=== PATIENT | female | born 1950 | race Two or more races ===

== ENCOUNTER 2017-02-02 17:17 | Observation (INO) | payer MEDICARE ==
[2017-02-02 17:30] VITALS: BMI 29.0
--- NOTE | 2017-02-02 17:56 | PDOC ---
History of Present Illness - General Chief Complaint: Chest Pain Stated Complaint: PCP SENT/CHEST PAIN Time Seen by Provider: 02/02/17 17:56 - History of Present Illness Initial Comments: 02/02/17 18:15 Ms. York is a 66 year old female with a significant past medical history of HTN, HLD, who presents to the emergency department from PCP reporting possible chest pain on thursday. The patient's blood pressure was 199 systolic at her PCPs. Says she has some current mild dizziness. The patient denies current chest pain, shortness of breath, and headache. Denies fever, chills, nausea, vomit, diarrhea and constipation. Denies dysuria, frequency, urgency and hematuria. Allergies: NKDA Referred by Leonard Irene (ENT) Past History - Past Medical History Allergies/Adverse Reactions: Allergies Allergy/AdvReac Type Severity Reaction Status Date / Time No Known Allergies Allergy Verified 02/02/17 17:26 Home Medications: Ambulatory Orders Aspirin [ASA -] 81 mg PO DAILY 09/13/16 Losartan Potassium 50 mg PO DAILY 09/13/16 Simvastatin 40 mg PO DAILY 09/13/16 HTN: Yes - Immunization History Immunization Up to Date: Yes - Suicide/Smoking/Psychosocial Hx Smoking History: Never smoked Hx Alcohol Use: No Drug/Substance Use Hx: No Substance Use Type: None Review of Systems - Review of Systems Comments:: 02/02/17 18:15 GENERAL/CONSTITUTIONAL: No fever or chills. No weakness. HEAD, EYES, EARS, NOSE AND THROAT: No change in vision. No ear pain or discharge. No sore throat. CARDIOVASCULAR: +Chest pain 2 days ago. No shortness of breath RESPIRATORY: No cough, wheezing, or hemoptysis. GASTROINTESTINAL: No nausea, vomiting, diarrhea or constipation. GENITOURINARY: No dysuria, frequency, or change in urination. MUSCULOSKELETAL: No joint or muscle swelling or pain. No neck or back pain. SKIN: No rash NEUROLOGIC: +Some current dizziness reported. No headache, vertigo, loss of consciousness, or change in strength/sensation. ENDOCRINE: No increased thirst. No abnormal weight change HEMATOLOGIC/LYMPHATIC: No anemia, easy bleeding, or history of blood clots. ALLERGIC/IMMUNOLOGIC: No hives or skin allergy. *Physical Exam - Vital Signs Last Vital Signs Temp Pulse Resp BP Pulse Ox 98.3 F 80 20 167/89 100 02/02/17 17:26 02/02/17 17:26 02/02/17 17:26 02/02/17 17:26 02/02/17 17:26 - Physical Exam Comments: 02/02/17 18:15 GENERAL: Awake, alert, and fully oriented, in no acute distress HEAD: No signs of trauma, normocephalic, atraumatic EYES: PERRLA, EOMI, sclera anicteric, conjunctiva clear ENT: Auricles normal inspection, hearing grossly normal, nares patent, oropharynx clear without exudates. Moist mucosa NECK: Normal ROM, supple, no lymphadenopathy, JVD, or masses LUNGS: No distress, speaks full sentences, clear to auscultation bilaterally HEART: Regular rate and rhythm, normal S1 and S2, no murmurs, rubs or gallops, peripheral pulses normal and equal bilaterally. ABDOMEN: Soft, nontender, normoactive bowel sounds. No guarding, no rebound. No masses EXTREMITIES: Normal inspection, Normal range of motion, no edema. No clubbing or cyanosis. NEUROLOGICAL: Cranial nerves II through XII grossly intact. Normal speech, normal gait, no focal sensorimotor deficits SKIN: Warm, Dry, normal turgor, no rashes or lesions noted. ED Treatment Course - LABORATORY CBC & Chemistry Diagram: 02/02/17 18:25 02/02/17 18:25 Medical Decision Making - Medical Decision Making 02/02/17 18:19 Patient presents for evaluation of previous chest pain with dizziness and systolic BP of 199. Labetalol given and EKG/trop/CBC/CMP sent. 02/02/17 18:57 Patient signed off to Dr. Ruiz for further care. *DC/Admit/Observation/Transfer Diagnosis at time of Disposition: Hypertension Qualifiers: Hypertension type: unspecified Qualified Code(s): I10 - Essential (primary) hypertension
--- NOTE | 2017-02-02 17:59 | PDOC ---
Attending Attestation - Resident Resident Name: Dario Vargas - ED Attending Attestation I have performed the following: I have examined & evaluated the patient, The case was reviewed & discussed with the resident, I agree w/resident's findings & plan, Exceptions are as noted - HPI HPI: 02/02/17 17:57 Chest Pain - Thursday, Sent from ENT office Today(thursday) because of elevated BP - Physicial Exam PE: 02/02/17 17:58 VSS NAD PAIN FREE AT PRESENT - Medical Decision Making 02/02/17 17:[address] Vargas's assessment and plan
[2017-02-02] MEDS ORDERED: LABETALOL HCL 5 MG/1 ML (100MG/20 ML VIAL) IVPUSH ONE ×3 (18:13→22:46)
[2017-02-02] MEDS ORDERED: LABETALOL HCL 5 MG/1 ML (200MG/40ML VIAL) IVPB ONE (18:37)
[2017-02-02 19:04] LABS: BASOPHIL 1.5 % (0-2.0); EOSINOPHIL 1.1 % (0-4.5); MCH 29.6 pg (25.7-33.7); MCHC 32.9 g/dl (32.0-36.0); MEAN PLT VOLUME 9.9 fl (7.5-11.1); NEUTROPHILS 58.4 % (42.8-82.8); PLATELET COUNT 283 K/MM3 (134-434); RDW 14.4 % (11.6-15.6); WHITE BLOOD COUNT 8.3 K/mm3 (4.0-10.0)
[2017-02-02 19:21] LABS: ALBUMIN 3.6 g/dl (3.4-5.0); ANION GAP 5 (8-16); CALCIUM 8.9 mg/dL (8.5-10.1); CO2 30 mmol/L (21-32); GLUCOSE,RANDOM 85 mg/dL (74-106); SGOT/AST 19 U/L (15-37); SGPT/ALT 22 U/L (12-78)
[2017-02-02 19:25] LABS: ALK PHOS 105 U/L (45-117); BILIRUBIN,TOTAL 0.3 mg/dL (0.2-1.0); CPK 265 IU/L (26-192); TOT PROT 7.5 g/dl (6.4-8.2); TROPONIN I < 0.02 ng/ml (0.00-0.05)
[2017-02-02] MEDS ORDERED: LOSARTAN POTASSIUM 50 MG TABLET (FP) PO ONE (19:43)
--- NOTE | 2017-02-02 19:46 | PDOC ---
History of Present Illness - General Chief Complaint: Chest Pain Stated Complaint: PCP SENT/CHEST PAIN Time Seen by Provider: 02/02/17 17:56 Past History - Past Medical History Allergies/Adverse Reactions: Allergies Allergy/AdvReac Type Severity Reaction Status Date / Time No Known Allergies Allergy Verified 02/02/17 17:26 Home Medications: Ambulatory Orders Aspirin [ASA -] 81 mg PO DAILY 09/13/16 Losartan Potassium 50 mg PO DAILY 09/13/16 Simvastatin 40 mg PO DAILY 09/13/16 HTN: Yes - Immunization History Immunization Up to Date: Yes - Suicide/Smoking/Psychosocial Hx Smoking History: Never smoked Hx Alcohol Use: No Drug/Substance Use Hx: No Substance Use Type: None *Physical Exam - Vital Signs Last Vital Signs Temp Pulse Resp BP Pulse Ox 98.0 F 80 18 184/78 98 02/02/17 18:07 02/02/17 18:07 02/02/17 18:07 02/02/17 18:40 02/02/17 18:07 ED Treatment Course - LABORATORY CBC & Chemistry Diagram: 02/02/17 18:25 02/02/17 18:25 - ADDITIONAL ORDERS Additional order review: 02/02/17 18:25 RBC 4.03 MCV 90.0 MCHC 32.9 RDW 14.4 MPV 9.9 D Neutrophils % 58.4 Lymphocytes % 29.4 Monocytes % 9.6 Eosinophils % 1.1 Basophils % 1.5 - Medications Given in the ED: ED Medications Discontinued Medications Generic Name Dose Route Start Last Admin Trade Name Freq PRN Reason Stop Dose Admin Labetalol HCl 5 mg 02/02/17 18:13 02/02/17 18:46 Normodyne Injection - IVPUSH 02/02/17 18:14 5 mg ONCE ONE Administration Medical Decision Making - Medical Decision Making 02/02/17 19:44 Additional patient history obtained, patient takes Losartan Potassium (50 mg BID ). Patient took her morning dose but not her afternoon dose which she usually takes around 3-4 p.m. daily. Patient administered second dose *DC/Admit/Observation/Transfer Diagnosis at time of Disposition: Hypertension Qualifiers: Hypertension type: unspecified Qualified Code(s): I10 - Essential (primary) hypertension - Referrals Referrals: Keith rGeene MD [Primary Care Provider] - - Patient Instructions - Post Discharge Activity
[2017-02-02] MEDS ORDERED: LOSARTAN POTASSIUM 25 MG TABLET ONE (20:07)
--- NOTE | 2017-02-02 22:31 | PDOC ---
*Physical Exam - Vital Signs Last Vital Signs Temp Pulse Resp BP Pulse Ox 98.0 F 72 18 174/73 98 02/02/17 18:07 02/02/17 20:13 02/02/17 20:13 02/02/17 20:13 02/02/17 20:13 - Physical Exam General Appearance: Yes: Nourished, Appropriately Dressed HEENT: positive: EOMI, NELLY Neck: positive: Trachea midline, Supple Respiratory/Chest: positive: Lungs Clear, Normal Breath Sounds Cardiovascular: positive: Regular Rhythm, Regular Rate, S1, S2 Neurologic: positive: Fully Oriented, Alert ED Treatment Course - LABORATORY CBC & Chemistry Diagram: 02/02/17 18:25 02/02/17 18:25 - ADDITIONAL ORDERS Additional order review: Laboratory Results 02/02/17 18:25 Sodium 140 Potassium 3.6 Chloride 105 Carbon Dioxide 30 Anion Gap 5 L BUN 15 Creatinine 1.0 Creat Clearance w eGFR 55.64 Random Glucose 85 Calcium 8.9 Total Bilirubin 0.3 AST 19 ALT 22 Alkaline Phosphatase 105 Creatine Kinase 265 H Creatine Kinase Index 0.6 CK-MB (CK-2) 1.835 Troponin I < 0.02 Total Protein 7.5 Albumin 3.6 02/02/17 18:25 RBC 4.03 MCV 90.0 MCHC 32.9 RDW 14.4 MPV 9.9 D Neutrophils % 58.4 Lymphocytes % 29.4 Monocytes % 9.6 Eosinophils % 1.1 Basophils % 1.5 - Medications Given in the ED: ED Medications Discontinued Medications Generic Name Dose Route Start Last Admin Trade Name Freq PRN Reason Stop Dose Admin Labetalol HCl 5 mg 02/02/17 18:13 02/02/17 18:46 Normodyne Injection - IVPUSH 02/02/17 18:14 5 mg ONCE ONE Administration Losartan Potassium 50 mg 02/02/17 19:43 02/02/17 20:12 Cozaar - PO 02/02/17 19:44 50 mg ONCE ONE Administration Medical Decision Making - Medical Decision Making 02/02/17 22:30 Patient continued to have elevated BP (190's SBP) following administration of Labetalol (5 mg) as well as her second dose of her home medication (Losartan Potassium (50 mg BID). Pressure taken on alternate arms as well as manual pressure to confirm SBP 190's. Patient admitted to telemetry/observation under Dr. Ashford with cardiology consult to Dr. Delcid. *DC/Admit/Observation/Transfer Diagnosis at time of Disposition: Hypertension Qualifiers: Hypertension type: unspecified Qualified Code(s): I10 - Essential (primary) hypertension - Discharge Dispostion Admit: Yes - Referrals Referrals: Keith Greene MD [Primary Care Provider] - - Patient Instructions - Post Discharge Activity
[2017-02-03 07:35] LABS: MCH 29.6 pg (25.7-33.7); MEAN CELL VOLUME 89.7 fl (80-96); MEAN PLT VOLUME 9.3 fl (7.5-11.1); PLATELET COUNT 267 K/MM3 (134-434); RDW 14.5 % (11.6-15.6); WHITE BLOOD COUNT 8.6 K/mm3 (4.0-10.0)
[2017-02-03 09:06] LABS: ALBUMIN 3.7 g/dl (3.4-5.0); ANION GAP 8 (8-16); CALCIUM 8.8 mg/dL (8.5-10.1); CO2 29 mmol/L (21-32); GLUCOSE,RANDOM 82 mg/dL (74-106)
[2017-02-03 09:13] LABS: ALK PHOS 95 U/L (45-117); BILIRUBIN,TOTAL 0.5 mg/dL (0.2-1.0); CPK 219 IU/L (26-192); CREATININE 0.8 mg/dL (0.55-1.02); SGOT/AST 17 U/L (15-37); SGPT/ALT 22 U/L (12-78); TOT PROT 7.1 g/dl (6.4-8.2); TROPONIN I < 0.02 ng/ml (0.00-0.05)
[2017-02-03] MEDS ORDERED: PT OWN MED DRAWER 7, Y5N ONE (09:23)
[2017-02-03] MEDS: ASPIRIN COATED 81 MG TABLET.EC PO SCH (09:37)
[2017-02-03] MEDS: ATORVASTATIN CA 20 MG TABLET (FP) PO SCH (09:37)
[2017-02-03] MEDS ORDERED: LOSARTAN POTASSIUM 50 MG TABLET (FP) PO SCH ×2 (10:00→12:26)
[2017-02-03] MEDS ORDERED: LOSARTAN POTASSIUM 50 MG TABLET (FP) PO ONE (12:25)
[2017-02-03] MEDS: METOPROLOL TARTRATE 50 MG TABLET (FP) PO SCH ×2 (13:23→21:40)
[2017-02-03] MEDS: HYDROCHLOROTHIAZIDE 25 MG TABLET (FP) PO SCH (13:23)
--- NOTE | 2017-02-03 13:23 | EKG ---
Test Reason : Blood Pressure : / mmHG Vent. Rate : 079 BPM Atrial Rate : 079 BPM P-R Int : 186 ms QRS Dur : 090 ms QT Int : 378 ms P-R-T Axes : 062 048 094 degrees QTc Int : 433 ms NORMAL SINUS RHYTHM NONSPECIFIC T WAVE ABNORMALITY ABNORMAL ECG WHEN COMPARED WITH ECG OF 16-AUG-2005 01:25, T WAVES ARE INVERTED IN LEADS aVL,V4-V6 CLINICAL CORRELATION IS RECOMMENDED REPEAT EKG INDICATED Confirmed by GINA SHAIKH MD ([id number] on 02/03/2017 1:23:08 PM Referred By: Confirmed By:GINA SHAIKH MD
--- NOTE | 2017-02-03 15:30 | PN ---
Progress Note (short form) - Note Progress Note: Chief Complaint: Events noted, notes reviewed, denies any further chest pain denies any dyspnea History of Present Illness: Seen and examined. Full consult dictated Echocardiography pending - Current Medication List Current Medications Aspirin (Ecotrin -) 81 mg PO DAILY [facility] Last Admin: 02/03/17 09:37 Dose: 81 mg Atorvastatin Calcium (Lipitor -) 20 mg PO DAILY [facility] Last Admin: 02/03/17 09:37 Dose: 20 mg Losartan Potassium (Cozaar -) 50 mg PO DAILY [facility] Review of Systems - Review of Systems Constitutional: No symptoms reported Respiratory: denies: Cough or Sputum Production Cardiovascular: as noted above Gastrointestinal: denies Nausea, Vomiting, Diarrhea, Constipation or Abdominal Pain Genitourinary: No symptoms reported Musculoskeletal: No symptoms reported Endocrine: No symptoms reported - Objective Vital Signs: Last Vital Signs Temp Pulse Resp BP Pulse Ox 98.2 F 75 20 159/73 98 02/03/17 14:00 02/03/17 14:00 02/03/17 10:00 02/03/17 14:00 02/03/17 10:00 Intake & Output 01/31/17 02/01/17 02/02/17 02/03/17 23:59 23:59 23:59 23:59 Intake Total 400 Balance 400 Weight 186 lb Constitutional: No Distress, Calm Neck: Supple Negative JVD Cardiovascular: S1 S2 Regular Rate and Rhythm, Grade 2/6 Systolic Ejection Murmur Respiratory: Clear to A&P Gastrointestinal: Soft, Benign Normal Bowel Sounds Ext: No Edema Labs: CBC, BMP 02/03/17 05:28 02/03/17 05:28 Hepatic Panel Total Bilirubin 0.5 mg/dL (0.2-1.0) D 02/03/17 05:28 AST 17 U/L (15-37) 02/03/17 05:28 ALT 22 U/L (12-78) 02/03/17 05:28 Alkaline Phosphatase 95 U/L (45-117) 02/03/17 05:28 Albumin 3.7 g/dl (3.4-5.0) 02/03/17 05:28 Troponin, BNP 02/02/17 02/03/17 18:25 05:28 Troponin I < 0.02 < 0.02 Assessment/Plan ASSESSMENT: 1. Chest pain syndrome clinical presentation of which is atypical for coronary artery disease angina pectoris, but to be excluded considering an abnormal electrocardiogram 2. Probable diastolic left ventricular dysfunction with class 0 [place] [employer] classification left ventricular failure 3. Hypertensive cardiovascular disease, labile blood pressure not at goal 4. Hypercholesterolemia 5. Heart Murmur most likely related to aortic valve disease aortic valve sclerosis, unlikely aortic valve stenosis PLAN: 1. Addition of beta jhon therapy in form of Lopressor 50 mg twice a day 2. Increasing dose of Cozaar to 100 mg once a day 3. Addition of Hydrochlorothiazide therapy at 25 mg once a day 4. Continuation of Ecotrin therapy 5. Continuation of Lipitor therapy 6. Echocardiography for evaluation of LV size and function and the above noted heart murmur 7. Recommend outpatient myocardial perfusion imaging study for further evaluation of the above-noted clinical presentation Navid Cline M.D.
--- NOTE | 2017-02-03 16:22 | HP ---
Admitting History and Physical - Primary Care Physician PCP: Elsa Ashford - Admission Chief Complaint: chest pain on thursday? History of Present Illness: -66 year old female with a significant past medical history of HTN, HLD, who presents to the emergency department from PCP reporting possible chest pain on thursday. The patient's blood pressure was 199 systolic at her PCPs. Says she has some current mild dizziness. currently no chest pain - Past Medical History Cardiovascular: Yes: HTN, Hyperlipdemia - Smoking History Smoking history: Never smoked - Alcohol/Substance Use Hx Alcohol Use: No Home Medications - Allergies Allergies/Adverse Reactions: Allergies Allergy/AdvReac Type Severity Reaction Status Date / Time No Known Allergies Allergy Verified 02/02/17 17:26 - Home Medications Home Medications: Ambulatory Orders Aspirin [ASA -] 81 mg PO DAILY 09/13/16 Losartan Potassium 50 mg PO DAILY 09/13/16 Simvastatin 40 mg PO DAILY 09/13/16 Physical Examination Vital Signs: Vital Signs Temperature 98.2 F 02/03/17 14:00 Pulse Rate 75 02/03/17 14:00 Respiratory Rate 20 02/03/17 10:00 Blood Pressure 159/73 02/03/17 14:00 O2 Sat by Pulse Oximetry (%) 98 02/03/17 10:00 Constitutional: Yes: No Distress HENT: Yes: Atraumatic Neck: Yes: Supple Cardiovascular: Yes: Regular Rate and Rhythm Respiratory: Yes: CTA Bilaterally Gastrointestinal: Yes: Normal Bowel Sounds Extremities: Yes: WNL Edema: No Peripheral Pulses WNL: Yes Neurological: Yes: Alert, Oriented Labs: CBC, BMP 02/03/17 05:28 02/03/17 05:28 Problem List - Problems (1) Hypertension Assessment/Plan: pts bp unstable on meds cardiology on board Code(s): I10 - ESSENTIAL (PRIMARY) HYPERTENSION Qualifiers: Hypertension type: unspecified Qualified Code(s): I10 - Essential ( primary) hypertension
--- NOTE | 2017-02-03 17:07 | CONS ---
DATE OF CONSULTATION: 02/03/2017 REQUESTING PHYSICIAN: Elsa Ashford MD CHIEF COMPLAINT: Chest pain, uncontrolled blood pressure. HISTORY OF PRESENT ILLNESS: A 66-year-old female of descent with known history of hypertensive cardiovascular disease, hypercholesterolemia, who denied diabetes mellitus, tobacco abuse, family history of premature coronary artery disease, who presented to [facility] for evaluation of recent-onset chest discomfort and uncontrolled blood pressure. Chest discomfort was noted a few days ago, which was described as heaviness, which was transitory, and it subsided spontaneously within a few minutes. The patient denied any exacerbation with physical exertion. Patient denied any associated symptomatology, i.e. diaphoresis. Patient was noted to have elevated blood pressure. In view of which, she was advised hospitalization for further evaluation and management. The patient currently denies any chest discomfort or dyspnea. Patient does not report any history of orthopnea, paroxysmal nocturnal dyspnea, or peripheral edema. Patient denies any palpitations, dizziness, lightheadedness, or syncope. Patient denies any fatigue or tiredness. PAST MEDICAL HISTORY: Hypertensive cardiovascular disease and hypercholesterolemia. SOCIAL HISTORY: Nonsmoker. FAMILY HISTORY: Positive coronary artery disease. ALLERGIES: None reported. MEDICAL THERAPY AT HOME: Included aspirin 81 mg once a day, Lipitor 20 mg once a day, Cozaar 50 mg once a day. REVIEW OF SYSTEMS: Head and Neck: Denies headache, photophobia, blurring of vision. Respiratory: No cough or sputum production. Cardiovascular: As noted above. Gastrointestinal: Denies nausea, vomiting, diarrhea, abdominal discomfort. Genitourinary: No symptoms reported. Musculoskeletal: No symptoms reported. PHYSICAL EXAMINATION: Vital Signs: Blood pressure is 159/73 mmHg. Pulse rate is 75 beats per minute. Head and Neck: Pupils equal and reactive to light and accommodation. Extraocular muscles are intact. Anicteric sclerae. Negative JVD. No bruit appreciated. Chest: Clear to auscultation and percussion. Cardiovascular: S1, S2. Regular. Grade 2/6 systolic ejection murmur. No clicks or gallops. Abdomen: Soft, benign. Normoactive bowel sounds. Extremities: Negative edema. Intact distal pulses. No calf tenderness. DIAGNOSTIC DATA: Electrocardiogram revealed sinus rhythm with ST-segment and T-wave abnormality. CBC revealed white cell count 8.6, hemoglobin 12.0, platelet count 267. Basic metabolic profile revealed glucose 82, sodium 140, potassium 3.5, BUN of 12, creatinine 0.8. CPK and troponin-I levels were noted. ASSESSMENT: 1. Chest pain syndrome, clinical presentation of which is atypical for coronary artery disease, angina pectoris but to be excluded considering the above-noted abnormal electrocardiogram. 2. Probable diastolic left ventricular dysfunction with class 0 [place] [employer] classification left ventricular failure. 3. Hypertensive cardiovascular disease, labile blood pressure, not at goal. 4. Hypercholesterolemia. 5. Heart murmur, most likely related to aortic valve disease, aortic valve sclerosis; unlikely to be aortic valve stenosis. PLAN: 1. Additional beta-blockers in the form of Lopressor at 50 mg twice a day. 2. Increasing dose of Cozaar to 100 mg once a day. 3. Addition of hydrochlorothiazide therapy at 25 mg once a day. 4. Continuation of Ecotrin therapy. 5. Continuation of Lipitor therapy. 6. Echocardiography for evaluation of left ventricular size and function and the above-noted heart murmur. 7. Recommend outpatient myocardial perfusion imaging study for further evaluation of the above-noted clinical presentation. Thank you for the kind referral. NIR JASSO M.D. [id number]
[2017-02-03] MEDS ORDERED: ACETAMINOPHEN 325 MG TABLET (FP) PO PRN (19:12)
[2017-02-04] MEDS: HYDROCHLOROTHIAZIDE 25 MG TABLET (FP) PO SCH (10:22)
[2017-02-04] MEDS: METOPROLOL TARTRATE 50 MG TABLET (FP) PO SCH (10:22)
[2017-02-04] MEDS: ATORVASTATIN CA 20 MG TABLET (FP) PO SCH (10:22)
[2017-02-04] MEDS: ASPIRIN COATED 81 MG TABLET.EC PO SCH (10:22)
--- NOTE | 2017-02-04 11:36 | PN ---
Progress Note, Physician History of Present Illness: No further chest pain or dyspnea, no events or telemetry. - Current Medication List Current Medications: Active Medications Acetaminophen (Tylenol -) 650 mg PO Q6H PRN PRN Reason: FEVER OR PAIN Aspirin (Ecotrin -) 81 mg PO DAILY [facility] Last Admin: 02/04/17 10:22 Dose: 81 mg Atorvastatin Calcium (Lipitor -) 20 mg PO DAILY [facility] Last Admin: 02/04/17 10:22 Dose: 20 mg Hydrochlorothiazide (Hctz -) 25 mg PO DAILY [facility] Last Admin: 02/04/17 10:22 Dose: 25 mg Losartan Potassium (Cozaar -) 100 mg PO DAILY [facility] Metoprolol Tartrate (Lopressor -) 50 mg PO BID [facility] Last Admin: 02/04/17 10:22 Dose: 50 mg - Objective Vital Signs: Vital Signs Temperature 98.4 F 02/04/17 06:00 Pulse Rate 57 L 02/04/17 06:00 Respiratory Rate 20 02/04/17 06:00 Blood Pressure 126/60 02/04/17 06:00 O2 Sat by Pulse Oximetry (%) 96 02/03/17 21:00 Constitutional: Yes: No Distress, Calm Neck: Yes: Supple Cardiovascular: Yes: Regular Rate and Rhythm Respiratory: Yes: Regular, CTA Bilaterally Gastrointestinal: Yes: Normal Bowel Sounds, Soft Edema: No Problem List - Problems (1) Chest pain Code(s): R07.9 - CHEST PAIN, UNSPECIFIED Qualifiers: Chest pain type: other chest pain Qualified Code(s): R07.89 - Other chest pain; R07.8 - Other chest pain (2) Hypertensive cardiomyopathy Code(s): I11.9 - HYPERTENSIVE HEART DISEASE WITHOUT HEART FAILURE I43 - CARDIOMYOPATHY IN DISEASES CLASSIFIED ELSEWHERE Qualifiers: Heart failure presence: without heart failure Qualified Code(s): I11.9 - Hypertensive heart disease without heart failure; I43 - Cardiomyopathy in diseases classified elsewhere (3) Diastolic dysfunction without heart failure Code(s): I51.9 - HEART DISEASE, UNSPECIFIED (4) Hyperlipidemia Code(s): E78.5 - HYPERLIPIDEMIA, UNSPECIFIED Qualifiers: Hyperlipidemia type: pure hypercholesterolemia Qualified Code(s): E78.00 - Pure hypercholesterolemia, unspecified; E78.0 - Pure hypercholesterolemia Assessment/Plan 02/04/2017 Echo: Normal biventricular size and fxn, mod cLVH, mild MR 1. Chest pain syndrome clinical presentation of which is atypical for coronary artery disease angina pectoris, but to be excluded considering an abnormal electrocardiogram 2. Probable diastolic left ventricular dysfunction with class 0 [place] [employer] classification left ventricular failure 3. Hypertensive cardiovascular disease, blood pressure improved 4. Hypercholesterolemia PLAN: 1. Continue Lopressor 50 mg twice a day 2. Continue Hyzaar 100/25 once a day 3. Continuation of Ecotrin 81 qd 4. Continuation of Lipitor 20 qd 5. Recommend outpatient myocardial perfusion imaging study for further evaluation of the above-noted clinical presentation 6. [phone]
[2017-02-04 16:03] VITALS: BP 133/66; PULSE 60; TEMP 98.8
--- NOTE | 2017-02-04 17:25 | DS ---
Physical Examination Vital Signs: Vital Signs Temperature 98.8 F 02/04/17 14:00 Pulse Rate 60 02/04/17 14:00 Respiratory Rate 20 02/04/17 12:00 Blood Pressure 133/66 02/04/17 14:00 O2 Sat by Pulse Oximetry (%) 99 02/04/17 10:00 Constitutional: Yes: No Distress HENT: Yes: Atraumatic Neck: Yes: Supple Cardiovascular: Yes: Regular Rate and Rhythm Respiratory: Yes: CTA Bilaterally Gastrointestinal: Yes: Normal Bowel Sounds Extremities: Yes: WNL Edema: No Peripheral Pulses WNL: Yes Neurological: Yes: Alert, Oriented Discharge Summary Reason For Visit: ELEVATED BLOOD PRESSURE READING Current Active Problems Chest pain (Acute) Diastolic dysfunction without heart failure (Acute) Hyperlipidemia (Acute) Hypertension (Acute) Hypertensive cardiomyopathy (Acute) - Instructions Referrals: Keith Greene MD [Primary Care Provider] - - Home Medications Comprehensive Discharge Medication List: Ambulatory Orders Aspirin [ASA -] 81 mg PO DAILY 09/13/16 Simvastatin 40 mg PO DAILY 09/13/16 Hydrochlorothiazide [Hctz -] 25 mg PO DAILY #30 tablet 02/04/17 Losartan Potassium [Cozaar -] 100 mg PO DAILY #60 tablet 02/04/17 Metoprolol Tartrate [Lopressor -] 50 mg PO BID #30 tablet 02/04/17 [facility] for further testing as out pt
== END 2017-02-04 18:16 | disposition home or self-care (01) ==
LOC: JER 17:17 → JERBED 22:33 → UNDOADMOB 22:33 → INTOOBSV 23:35 → JERBED 23:35 → UNDOADMOB 23:35 → J4W 23:53 → JERBED 23:53 → J4W 23:53 → JERBED 02-03 18:43 → J4W 02-03 18:43 → INTOOBSV 02-03 18:43 → OBSVTOIN 02-03 18:43
PROVIDERS: ADMIT Internal Medicine; ATTEND Internal Medicine
PROC: 3E033GC Introduction of Other Therapeutic Substance into Peripheral Vein, Percutaneous Approach (ICD-10-PCS; principal; 2017-02-03)
DX: I11.9 Hypertensive heart disease without heart failure (principal); E78.5 Hyperlipidemia, unspecified; Z79.82 Long term (current) use of aspirin
CPT/HCPCS: 36415; 80053; 82553; 84484; 85025; 85027; 93005; 93010; 93306-TC; 99285-25; G0378

== ENCOUNTER 2018-06-09 12:53 | Inpatient (IN) | payer MEDICARE, OTHER | END 2018-06-14 17:52 | disposition home or self-care (01) | LOC: JER 12:53 → JERBED 14:48 → J6S 21:52 ==

== ENCOUNTER 2019-01-05 11:00 | Observation (INO) | payer MEDICARE, OTHER ==
[2019-01-05 11:59] LABS: BASO % 0.8 % (0-2.0); EOS % 0.7 % (0-4.5); HEMATOCRIT 38.8 % (32.4-45.2); HEMOGLOBIN 12.9 GM/dL (10.7-15.3); LYMPH % 39.9 % (8-40); MCHC 33.2 g/dl (32.0-36.0); MEAN CELL VOLUME 90.2 fl (80-96); MEAN PLT VOLUME 8.8 fl (7.5-11.1); MONO % 8.9 % (3.8-10.2); NEUT % 49.7 % (42.8-82.8); PLATELET COUNT 323 K/MM3 (134-434); RDW 14.6 % (11.6-15.6); WHITE BLOOD COUNT 7.6 K/mm3 (4.0-10.0)
[2019-01-05] MEDS ORDERED: SODIUM CHLORIDE 1,000 ML IV SCH (12:00)
--- NOTE | 2019-01-05 12:13 | EKG ---
Test Reason : Blood Pressure : / mmHG Vent. Rate : 092 BPM Atrial Rate : 092 BPM P-R Int : 176 ms QRS Dur : 088 ms QT Int : 408 ms P-R-T Axes : 068 050 083 degrees QTc Int : 504 ms SINUS RHYTHM WITH OCCASIONAL PREMATURE VENTRICULAR COMPLEXES POSSIBLE LEFT ATRIAL ENLARGEMENT NONSPECIFIC T WAVE ABNORMALITY ABNORMAL ECG WHEN COMPARED WITH ECG OF 09-JUN-2018 14:13, PREMATURE VENTRICULAR COMPLEXES ARE NOW PRESENT NONSPECIFIC T WAVE ABNORMALITY NO LONGER EVIDENT IN INFERIOR LEADS T WAVE INVERSION LESS EVIDENT IN ANTEROLATERAL LEADS QT HAS LENGTHENED Confirmed by KING MALLORY, MATHEW ([id number]) on 01/05/2019 12:13:30 PM Referred By: Confirmed By:MATHEW MALIK MD
[2019-01-05 12:23] LABS: BILIRUBIN,TOTAL 0.4 mg/dL (0.2-1); CALCIUM 9.5 mg/dL (8.5-10.1); CREATININE 0.9 mg/dL (0.55-1.3); TOT PROT 8.1 g/dl (6.4-8.2)
[2019-01-05] MEDS ORDERED: ASPIRIN 325 MG ENTERIC COATED TABLET (FP) PO ONE (12:23)
[2019-01-05] MEDS ORDERED: ASPIRIN 325 MG ENTERIC COATED TABLET (FP) ONE (12:44)
[2019-01-05 12:48] LABS: INR 1.1 (0.83-1.09)
[2019-01-05 13:13] LABS: CHOLESTEROL 244 mg/dL (50-200); HDL CHOLESTEROL 41 mg/dL (40-60); TRIGLYCERIDES 210 mg/dL (0-150)
--- NOTE | 2019-01-05 13:30 | PDOC ---
Documentation entered by Iveth Kumar SCRIBE, acting as scribe for Moody Bui MD. Moody Bui MD: This documentation has been prepared by the José henry Adrianna, SCRIBE, under my direction and personally reviewed by me in its entirety. I confirm that the documentation accurately reflects all work, treatment, procedures, and medical decision making performed by me. History of Present Illness - General Chief Complaint: Chest Pain Stated Complaint: CHEST PAIN Time Seen by Provider: 01/05/19 11:26 - History of Present Illness Initial Comments: 68 Y F, with PMH of HTN, HLD, sinusitis, and osteoporosis, presents for possible TIA. Patients last known well was at 10:40 am (~1 hour ago). Patient notes she was in the car coming back [place] her daughter at the train station, when she suddenly felt bad and as if she were losing her strength. 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 Patient notes she was able to picking table worker the bottle with her left hand. She reports chest palpitations, feeling dizzy, had a knot in her throat, and had difficulty speaking. Patients notes he was unable to understand what she was saying. Allergies: NKA, NKDA Surgical History: None reported Social History: Denies EtOH, tobacco, or illicit drug use PCP: Dr. Rayo Past History - Past Medical History Allergies/Adverse Reactions: Allergies Allergy/AdvReac Type Severity Reaction Status Date / Time No Known Allergies Allergy Verified 01/05/19 11:13 Home Medications: Ambulatory Orders Amlodipine Besylate 10 mg PO DAILY 06/09/18 Doxazosin Mesylate 4 mg PO DAILY 06/09/18 Labetalol HCl [Normodyne -] 200 mg PO BID 06/09/18 Olmesartan/Hydrochlorothiazide [Olmesartan-Hctz 40-25 mg Tab] 1 each PO DAILY Simvastatin 20 mg PO DAILY 06/10/18 COPD: No HTN: Yes Hypercholesterolemia: Yes - Immunization History Immunization Up to Date: Yes - Suicide/Smoking/Psychosocial Hx Smoking History: Unknown if ever smoked Have you smoked in the past 12 months: No Hx Alcohol Use: No Drug/Substance Use Hx: No Substance Use Type: None Review of Systems - Review of Systems Comments:: CONSTITUTIONAL: No fever, no chills, no fatigue EYES: No visual changes ENT: +Knot in throat. No ear pain CARDIOVASCULAR: +Chest palpitations. No chest pain RESPIRATORY: No cough, no SOB GI: No abdominal pain, no nausea, no vomiting, no constipation, no diarrhea GENITOURINARY: No dysuria, no frequency, no hematuria MUSKULOSKELETAL: No back pain, no joint pain, no myalgias SKIN: No rash NEURO: +Right hand and upper extremity weakness. +Difficulty speaking. + Illegible speech. +Dizzy *Physical Exam - Vital Signs Last Vital Signs Temp Pulse Resp BP Pulse Ox 97 F L 87 20 183/68 H 97 01/05/19 11:10 01/05/19 11:19 01/05/19 11:19 01/05/19 11:19 01/05/19 11:19 - Physical Exam Comments: 01/05/19 11:30 CONSTITUTIONAL: Well-appearing; well-nourished; in no apparent distress HEAD: Normocephalic; atraumatic EYES: PERRL; EOM intact ENMT: External appears normal; normal oropharynx NECK: Supple; non-tender; no cervical lymphadenopathy CARD: Normal S1, S2; no murmurs, rubs, or gallops RESP: Normal chest excursion with respiration; breath sounds clear and equal bilaterally; no wheezes, rhonchi, or rales ABD: Soft, non-distended; non-tender; no palpable organomegaly, no palpable hernias EXT: Normal ROM in all four extremities; non-tender to palpation; distal pulses intact SKIN: Warm, dry, no rash NEURO: +Right-sided facial droop. Alert, awake, appropriate. Cranial nerves 2- 12 intact. No deficits to light touch and temperature in face, upper extremities and lower extremities. No motor deficits in the upper extremities and lower extremities. No pronator drift. Normoreflexic in the upper and lower extremities. Normal speech. Toes are down-going bilaterally. Gait is normal without ataxia. No dysmetria. No dysdiadochokinesis. No skew deviation. No abnormal nystagmus. Rhomberg is +/-. Head thrust test is +/-. Dixs-Hallpike test is +/-. NIH Stroke Scale - Last Known Well Date/Time & Onset Date Last Known Well: 01/05/19 Time Last Known Well: 10:40 - Initial Evaluation Level of consciousness: Alert Ask patient the month and their age: Answers both correctly Ask patient to open & close eyes; make fist and let go: Obeys both correctly Best gaze (horizontal eye movement): Normal Visual field testing: No visual field loss Facial paresis (Show teeth/raise eyebrows/close eyes tight): Minor paralysis ( flattened nasolabial fold, asymmetry on smiling) Motor Function: Left Arm: Normal Motor Function: Right Arm: Normal (extends arm 90 (or 45) degrees for 10 seconds without drift Motor Function: Left Leg: Normal (extends leg 30 degrees for 5 seconds without drift) Motor Function: Right Leg: Normal (extends leg 30 degrees for 5 seconds without drift) Limb Ataxia: No ataxia Sensory(Use pinprick test arms,legs,trunk,face/side to side): Normal Best language (Describe picture, name items, read sentences): No Aphasia Dysarthria (read several words): Normal articulation Extinction and Inattention: No abnormality - Total Score NIH Stroke Scale Score: 1 tPA Exclusion Checklist 0-3hr - Time Elapsed Date last known well: 01/05/19 Time last known well: 10:40 Elaspsed time: Day(s) and 2 Hour(s) and 59 Minutes - Thrombolytic Therapy Candidate Is the patient eligible for Thrombolytic Therapy?: No - Exclusion Criteria 0-3hr SBP greater than 185 or DBP greater than 110mmHg despite tx: No Recent IC/spinal surgery,head trauma or stroke w/in last 3mo: No Hx of previous IC hemorrhage, IC neoplasm, AVM or aneurysm: No Active internal bleeding: No Blding diathesis(low plt ct, inc PTT,INR>1.7 or use of NOAC): No Symptoms suggest subarachnoid hemorrhage: No CT demonstrates multilobar infarct(>1/3 cerebral hemiphere): No Arterial puncture at noncompressible site in previous 7 days: No Blood glucose concentration less than 50mg/dL (2.7mmol/L): No - Relative Exclusion Criteria 0-3h Life expectancy <1yr/severe co-morbid illness/[employer]ER on admit: No : No Patient/family refused: No Rapid improvement: Yes Stroke severity too mild: Yes Recent acute GA (w/in previous 3 months): No Seizure at onset with postictal residual neuro impairments: No Major surgery or serious trauma w/in previous 14 days: No Recent GI or hemorrhage (w/in previous 21 days): No - Ineligibility reason(s) Reasons No tPA given: See reason(s) noted above Critical Care Time/MDM Note - Medical Decision Making Note: 01/05/19 12:00 Patient re-evaluated after returning from CT. NIHSS stroke scale remains a 1. 01/05/19 13:37 Patient was seen and evaluated immediately upon arrival in the ED. Patient is 68 -year-old female with history of hypertension, hypercholesterolemia and osteoporosis who presented with atraumatic weakness of her right arm and difficulty speaking that began approximately 10:40 AM on the day of arrival. Patient was at that time in the car with her who confirms the history. On arrival, patient is noted to be awake and alert, with minimal right-sided facial droop and no other focal neurological deficits. There is no evidence of a pronation drift and strength was noted to be 5 over 54 with a normal gait. CT of head showed no evidence of acute or cranial pathology. Patient's NIH stroke scale was noted to be 1. Given the mild nature of the symptoms upon presentation, and the risk associated with administration of TPA, no TPA was given at the time. Neurology was consulted and Dr. Adams agreed with the plan. We'll administer aspirin. Will admit 01/05/19 13:39 patient's blood pressure improved without intervention. *DC/Admit/Observation/Transfer Diagnosis at time of Disposition: TIA (transient ischemic attack) - Discharge Dispostion Condition at time of disposition: Decision to Admit order: Yes - Referrals Referrals: Keith Greene MD [Non Staff, Medical] - - Patient Instructions - Post Discharge Activity ED Treatment Course - LABORATORY CBC & Chemistry Diagram: 01/05/19 11:46 01/05/19 11:46 - ADDITIONAL ORDERS Additional order review: Laboratory Results 01/05/19 01/05/19 11:46 11:46 Sodium 140 Potassium 4.0 Chloride 102 Carbon Dioxide 32 Anion Gap 6 L BUN 15.0 Creatinine 0.9 Est GFR (CKD-EPI)AfAm 76.68 Est GFR (CKD-EPI)NonAf 66.16 Random Glucose 118 H Calcium 9.5 Total Bilirubin 0.4 AST 18 ALT 21 Alkaline Phosphatase 109 Creatine Kinase 162 Troponin I < 0.02 Total Protein 8.1 Albumin 4.0 01/05/19 11:46 RBC 4.30 MCV 90.2 MCHC 33.2 RDW 14.6 MPV 8.8 Neutrophils % 49.7 D Lymphocytes % 39.9 D Monocytes % 8.9 Eosinophils % 0.7 D Basophils % 0.8 - RADIOLOGY Radiology Studies Ordered: Category Date Time Status HEAD CT (STROKE) [CT] Stat CT Scan 01/05/19 11:47 Completed CHEST X-RAY PORTABLE* [RAD] Stat Radiology 01/05/19 11:35 Completed Radiograph Interpretation: EXAM#: TYPE/EXAM: RESULT: [id number] CT/HEAD CT (STROKE) Rule out stroke CT scan of the brain without intravenous contrast. Compared to prior CT scan of the head dated 09/13/2016 There is mild volume loss and ventricular dilatation. The basal cisterns appear unremarkable. There is again suggestion of a dural based calcified/ossified density seen along the anterior/ inferior margin of the left frontal lobe measuring 9 mm likely representing a calcified/ossified meningioma. Otherwise, no mass lesion, gross acute infarct or intracranial hemorrhage are identified. Partially included small retention cyst versus polyp in the right maxillary antrum, medially measuring 1 cm. Minimal mucosal thickening in right side of the sphenoid sinus, anteriorly. Otherwise, the visualized paranasal sinuses and mastoid air cells are well-aerated. The calvarium is intact. Impression: See discussion above. No significant interval change or acute intracranial pathology is identified. Correlate clinically to determine further evaluation and follow-up Reported By: Eron Camarena MD 01/05/19 12:22 EXAM#: TYPE/EXAM: RESULT: [id number] RAD/CHEST X-RAY PORTABLE* Chest: Chest pain Impression : No acute pathology. Better inspiration than prior study of 2018. Reported By: Leonard Blackmon MD 01/05/19 12:23 - Medications Given in the ED: ED Medications Discontinued Medications Generic Name Dose Route Start Last Admin Trade Name Freq PRN Reason Stop Dose Admin Aspirin 325 mg 01/05/19 12:23 01/05/19 12:48 Ecotrin - PO 01/05/19 12:24 325 mg ONCE ONE Administration - Consult/PCP Time Called: 12:00 (spoke with neuro, in agreement with plan) Case discussed with personal care physician: Veronica Hernandez
--- NOTE | 2019-01-05 13:39 | HP ---
Admitting History and Physical - Primary Care Physician PCP: Handy Rayo - Admission Chief Complaint: weakness to right hand with slurred speech History of Present Illness: 68 Y F, with PMH of HTN, HLD, sinusitis, and osteoporosis, presents for possible TIA. Patients last known well was at 10:40 am (~1 hour ago). Patient notes she was in the car coming back from [place] her daughter at the train station, when she suddenly felt bad and as if she were losing her strength. 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 Patient notes she was able to continuous pickling line pickler helper the bottle with her left hand. She reports chest palpitations, feeling dizzy, had a knot in her throat, and had difficulty speaking. Patients notes he was unable to understand what she was saying. History Source: Patient Limitations to Obtaining History: Language Barrier (primarily south korean speaking) - Past Medical History Cardiovascular: Yes: HTN, Hyperlipdemia Additional Past Medical History: Osteoperosis sinusitis - Smoking History Smoking history: Unknown if ever smoked Have you smoked in the past 12 months: No - Alcohol/Substance Use Hx Alcohol Use: No Home Medications - Allergies Allergies/Adverse Reactions: Allergies Allergy/AdvReac Type Severity Reaction Status Date / Time No Known Allergies Allergy Verified 01/05/19 11:13 - Home Medications Home Medications: Ambulatory Orders Amlodipine Besylate 10 mg PO DAILY 06/09/18 Doxazosin Mesylate 4 mg PO DAILY 06/09/18 Labetalol HCl [Normodyne -] 200 mg PO BID 06/09/18 Olmesartan/Hydrochlorothiazide [Olmesartan-Hctz 40-25 mg Tab] 1 each PO DAILY Simvastatin 20 mg PO DAILY 06/10/18 Family Disease History - Family Disease History Family History: Denies Review of Systems - Review of Systems Constitutional: reports: No Symptoms Eyes: reports: No Symptoms HENT: reports: No Symptoms Neck: reports: No Symptoms Cardiovascular: reports: Palpitations (no pain) Respiratory: reports: No Symptoms Gastrointestinal: reports: No Symptoms Genitourinary: reports: No Symptoms Breasts: reports: No Symptoms Reported Musculoskeletal: reports: No Symptoms Integumentary: reports: No Symptoms Neurological: reports: Change in Speech (slight slurring of speech), Weakness ( resolved) Endocrine: reports: No Symptoms Hematology/Lymphatic: reports: No Symptoms Psychiatric: reports: No Symptoms Physical Examination Vital Signs: Vital Signs Temperature 98.1 F 01/05/19 11:45 Pulse Rate 84 01/05/19 12:54 Respiratory Rate 17 01/05/19 12:54 Blood Pressure 154/65 01/05/19 12:54 O2 Sat by Pulse Oximetry (%) 99 01/05/19 13:01 Constitutional: Yes: Well Nourished, No Distress, Calm Eyes: Yes: WNL, Conjunctiva Clear, EOM Intact HENT: Yes: WNL, Atraumatic, Normocephalic Neck: Yes: WNL, Supple, Trachea Midline Cardiovascular: Yes: WNL, Regular Rate and Rhythm Respiratory: Yes: WNL, Regular, CTA Bilaterally Gastrointestinal: Yes: WNL, Normal Bowel Sounds, Soft ...Rectal Exam: Yes: Deferred Renal/: Yes: WNL Breast(s): Yes: WNL Musculoskeletal: Yes: WNL Extremities: Yes: WNL Edema: No Integumentary: Yes: WNL Neurological: Yes: Dysarthria (mild. NISS stroke scale +1 for mils slurring of speech) ...Motor Strength: WNL Psychiatric: Yes: WNL, Alert, Oriented Labs: CBC, BMP 01/05/19 11:46 01/05/19 11:46 Imaging - Results Cat Scan: Report Reviewed (no acute pathology) Problem List - Problems (1) Preventive measure Assessment/Plan: FEN low/fat cholesterol diet no need for additional IVF monitor electrolytes DVT asa ambulatory Dispo observation for 24 on tele full code discharge planning Code(s): Z29.9 - ENCOUNTER FOR PROPHYLACTIC MEASURES, UNSPECIFIED (2) TIA (transient ischemic attack) Assessment/Plan: slurring of sprech resolving since initial presentation to ED HCT with no acute pathology neuro checks q 1h asa given in ED, will contionue Dr Hernandez consulted and will see patient Code(s): G45.9 - TRANSIENT CEREBRAL ISCHEMIC ATTACK, UNSPECIFIED (3) Hypertension Assessment/Plan: continue norvasc, hctx, labetolol, doxazosin, diovan to mainatin BP <140/90 Code(s): I10 - ESSENTIAL (PRIMARY) HYPERTENSION Qualifiers: Hypertension type: unspecified Qualified Code(s): I10 - Essential (primary ) hypertension (4) Hyperlipidemia Assessment/Plan: c/w atrovastatin, increase dose to 40 qd Code(s): E78.5 - HYPERLIPIDEMIA, UNSPECIFIED Visit type - Emergency Visit Emergency Visit: Yes ED Registration Date: 01/05/19 Care time: The patient presented to the Emergency Department on the above date and was hospitalized for further evaluation of their emergent condition. - New Patient This patient is new to me today: Yes Date on this admission: 01/05/19 - Critical Care Critical Care patient: No
--- NOTE | 2019-01-05 13:44 | PDOC ---
Documentation entered by Iveth Kumar SCRIBE, acting as scribe for Moody Bui MD. Moody Bui MD: This documentation has been prepared by the José henry Adrianna, SCRIBE, under my direction and personally reviewed by me in its entirety. I confirm that the documentation accurately reflects all work, treatment, procedures, and medical decision making performed by me. NIH Stroke Scale - Last Known Well Date/Time & Onset Date Last Known Well: 01/05/19 Time Last Known Well: 10:40 - Initial Evaluation Level of consciousness: Alert Ask patient the month and their age: Answers both correctly Ask patient to open & close eyes; make fist and let go: Obeys both correctly Best gaze (horizontal eye movement): Normal Visual field testing: No visual field loss Facial paresis (Show teeth/raise eyebrows/close eyes tight): Minor paralysis ( flattened nasolabial fold, asymmetry on smiling) Motor Function: Left Arm: Normal Motor Function: Right Arm: Normal (extends arm 90 (or 45) degrees for 10 seconds without drift Motor Function: Left Leg: Normal (extends leg 30 degrees for 5 seconds without drift) Motor Function: Right Leg: Normal (extends leg 30 degrees for 5 seconds without drift) Limb Ataxia: No ataxia Sensory(Use pinprick test arms,legs,trunk,face/side to side): Normal Best language (Describe picture, name items, read sentences): No Aphasia Dysarthria (read several words): Normal articulation Extinction and Inattention: No abnormality - Total Score NIH Stroke Scale Score: 1
[2019-01-05 16:10] VITALS: BMI 28.1
--- NOTE | 2019-01-05 17:37 | PN.NIHSS ---
NIH Stroke Scale - Last Known Well Date/Time & Onset Date Last Known Well: 01/05/19 Time Last Known Well: 10:40 - Initial Evaluation Level of consciousness: Alert Ask patient the month and their age: Answers both correctly Ask patient to open & close eyes; make fist and let go: Obeys both correctly Best gaze (horizontal eye movement): Normal Visual field testing: No visual field loss Facial paresis (Show teeth/raise eyebrows/close eyes tight): Normal symmetrical movement Motor Function: Left Arm: Normal Motor Function: Right Arm: Normal (extends arm 90 (or 45) degrees for 10 seconds without drift Motor Function: Left Leg: Normal (extends leg 30 degrees for 5 seconds without drift) Motor Function: Right Leg: Normal (extends leg 30 degrees for 5 seconds without drift) Limb Ataxia: No ataxia Sensory(Use pinprick test arms,legs,trunk,face/side to side): Normal Best language (Describe picture, name items, read sentences): No Aphasia Dysarthria (read several words): Normal articulation Extinction and Inattention: No abnormality - Total Score NIH Stroke Scale Score: 0
[2019-01-05] MEDS: LABETALOL HCL 200 MG TABLET (FP) PO SCH (23:00)
--- NOTE | 2019-01-05 23:08 | CON.NEURO ---
Consult Consult Specialty:: NEUROLOGY-SUDHA MALLORY Reason for Consultation:: ??TIA - History of Present Illness History of Present Illness: 68 Y F, with PMH of HTN, HLD, sinusitis, and osteoporosis, presents for possible TIA. Patients last known well was at 10:40 am (~1 hour ago). Patient notes she was in the car coming back from [place] her daughter at the train station, when she suddenly felt bad and as if she were losing her strength. 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 Patient notes she was able to merchandise pickup/receiving associate the bottle with her left hand. She reports chest palpitations, feeling dizzy, had a knot in her throat, and had difficulty speaking. Patients notes he was unable to understand what she was saying. Also reports she had vertigo, not dizziness and right foot paresthesias during episode. NIHSS-0-1 CT head-reported with no evid. of ischemia - Past Medical History Cardio/Vascular: Yes: HTN, Hyperlipdemia - Alcohol/Substance Use Hx Alcohol Use: No - Smoking History Smoking history: Unknown if ever smoked Have you smoked in the past 12 months: No If you are a former smoker, when did you quit?: 20years Home Medications - Allergies Allergies/Adverse Reactions: Allergies Allergy/AdvReac Type Severity Reaction Status Date / Time No Known Allergies Allergy Verified 01/05/19 11:13 - Home Medications Home Medications: Ambulatory Orders Amlodipine Besylate 10 mg PO DAILY 06/09/18 Doxazosin Mesylate 4 mg PO DAILY 06/09/18 Labetalol HCl [Normodyne -] 200 mg PO BID 06/09/18 Olmesartan/Hydrochlorothiazide [Olmesartan-Hctz 40-25 mg Tab] 1 each PO DAILY Simvastatin 20 mg PO DAILY 06/10/18 Physical Exam-Neuro Vital Signs: Vital Signs Temperature 98.6 F 01/05/19 20:26 Pulse Rate 85 01/05/19 20:26 Respiratory Rate 18 01/05/19 20:26 Blood Pressure 130/98 01/05/19 20:26 O2 Sat by Pulse Oximetry (%) 99 01/05/19 17:04 Labs: CBC, BMP 01/05/19 11:46 01/05/19 11:46 INR, PTT INR 1.10 (0.83-1.09) H 01/05/19 11:46 - Neuro Exam Level Of Consciousness: Yes: Alert, Oriented to Person, Oriented to Place, Oriented to Time Eyes: Yes: NELLY Speech: WNL Dominant Hand: Right Mini Mental Exam: normal Cranial Nerves II-XII Intact: No (?? slight diminished right nlf) DTR's: 0 Left Achilles, 0 Right Achilles, 2+ Left Bicep, 2+ Right Bicep, 2+ Left Tricep, 2+ Right Tricep, 2+ Left Brachioradialis, 2+ Right Brachioradialis Babinski: Absent Motor Strength: 5/5: Left Arm, Right Arm, Left Leg, Right Leg (+ RUE slight drift) Gait: Normal Assessment/Plan Likely TIA with vertigo, dysarthria, ?/ right facial droop/post. circ. TIA MRI brain, carotid/transc.ultrasound, echocard.ASA 325mg daily for now. Thank you, Taz duran MD
[2019-01-06 06:48] LABS: BASO % 0.8 % (0-2.0); HEMATOCRIT 34.3 % (32.4-45.2); HEMOGLOBIN 11.5 GM/dL (10.7-15.3); LYMPH % 38.5 % (8-40); MCH 30.3 pg (25.7-33.7); MCHC 33.5 g/dl (32.0-36.0); MEAN CELL VOLUME 90.4 fl (80-96); MEAN PLT VOLUME 8.8 fl (7.5-11.1); NEUT % 51.7 % (42.8-82.8); PLATELET COUNT 290 K/MM3 (134-434); RBC 3.79 M/mm3 (3.60-5.2); RDW 14.9 % (11.6-15.6); WHITE BLOOD COUNT 7.9 K/mm3 (4.0-10.0)
[2019-01-06 06:50] LABS: INR 1.13 (0.83-1.09); PROTHROMBIN TIME (PATIENT) 13.4 SEC (9.7-13.0)
[2019-01-06 07:01] LABS: ALBUMIN 3.5 g/dl (3.4-5.0); BILIRUBIN,TOTAL 0.5 mg/dL (0.2-1); BLOOD UREA NITROGEN 17.4 mg/dL (7-18); CALCIUM 9.2 mg/dL (8.5-10.1); CREATININE 0.9 mg/dL (0.55-1.3); MAGNESIUM 2.4 mg/dL (1.8-2.4); POTASSIUM 3.9 mmol/L (3.5-5.1)
--- NOTE | 2019-01-06 08:08 | PN ---
Progress Note, Physician Chief Complaint: no complaints offered History of Present Illness: 68 Y F, with PMH of HTN, HLD, sinusitis, and osteoporosis, presents for possible TIA. Patients last known well was at 10:40 am (~1 hour ago). Patient notes she was in the car coming back from [place] daughter [place] the train station, when she suddenly felt bad and as if she were losing her strength. 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 Patient notes she was able to pick up truck driver the bottle with her left hand. She reports chest palpitations, feeling dizzy, had a knot in her throat, and had difficulty speaking. Patients notes he was unable to understand what she was saying. - Current Medication List Current Medications: Active Medications Amlodipine Besylate (Norvasc -) 10 mg PO DAILY [facility] Aspirin (Ecotrin -) 325 mg PO DAILY [facility] Atorvastatin Calcium (Lipitor -) 40 mg PO HS [facility] Doxazosin Mesylate (Cardura -) 4 mg PO DAILY [facility] Hydrochlorothiazide (Hctz -) 25 mg PO DAILY [facility] Sodium Chloride (Normal Saline -) 1,000 mls @ 42 mls/hr IV ASDIR [facility] Last Admin: 01/05/19 12:07 Dose: 42 mls/hr Labetalol HCl (Normodyne -) 200 mg PO BID [facility] Last Admin: 01/05/19 23:00 Dose: 200 mg Valsartan (Diovan -) 320 mg PO DAILY [facility] - Objective Vital Signs: Vital Signs Temperature 97.4 F L 01/06/19 06:00 Pulse Rate 77 01/06/19 06:00 Respiratory Rate 18 01/06/19 06:00 Blood Pressure 145/81 01/06/19 06:00 O2 Sat by Pulse Oximetry (%) 99 01/05/19 17:04 Constitutional: Yes: Well Nourished, No Distress, Calm Eyes: Yes: WNL, Conjunctiva Clear, EOM Intact HENT: Yes: WNL, Atraumatic, Normocephalic Neck: Yes: WNL, Supple, Trachea Midline Cardiovascular: Yes: WNL, Regular Rate and Rhythm Respiratory: Yes: WNL, Regular, CTA Bilaterally Gastrointestinal: Yes: WNL, Normal Bowel Sounds, Soft ...Rectal Exam: Yes: Deferred Genitourinary: Yes: WNL Breast(s): Yes: WNL Musculoskeletal: Yes: WNL Extremities: Yes: WNL Edema: No Peripheral Pulses WNL: Yes Integumentary: Yes: WNL Neurological: Yes: WNL, Alert, Oriented, Cran Nerves II-XII Intact ...Motor Strength: WNL Psychiatric: Yes: WNL, Alert, Oriented Labs: CBC, BMP 01/06/19 05:40 01/06/19 05:40 INR, PTT INR 1.13 (0.83-1.09) H 01/06/19 05:40 - ....Imaging Ultrasound: Pending (Carotid dopplers) MRI: Pending (Brain) Other: Report Reviewed (TTE: Ef 60-65%, trace pul valve regurg, RV fx nml) Problem List - Problems (1) Preventive measure Assessment/Plan: FEN low/fat cholesterol diet no need for additional IVF monitor electrolytes DVT c/w asa 325mg ambulatory Dispo maintain on tele full code discharge planning Code(s): Z29.9 - ENCOUNTER FOR PROPHYLACTIC MEASURES, UNSPECIFIED (2) TIA (transient ischemic attack) Assessment/Plan: slurring of speech resolved since initial presentation to ED HCT with no acute pathology MRI pending neuro checks q 1h continue TTE done and nml c/w asa Dr Hernandez consultation appreciated consultation by speech pathology appreciate no dysphagia, c/w thin liquids Code(s): G45.9 - TRANSIENT CEREBRAL ISCHEMIC ATTACK, UNSPECIFIED (3) Hypertension Assessment/Plan: continue norvasc, hctx, labetolol, doxazosin, diovan to mainatin BP <140/90 Code(s): I10 - ESSENTIAL (PRIMARY) HYPERTENSION Qualifiers: Hypertension type: unspecified Qualified Code(s): I10 - Essential (primary ) hypertension (4) Hyperlipidemia Assessment/Plan: c/w atrovastatin, 40 mg qd Code(s): E78.5 - HYPERLIPIDEMIA, UNSPECIFIED Impression/Plan Impression/Plan: Likely TIA with vertigo, dysarthria, ?/ right facial droop/post. circ. TIA MRI brain, carotid/transc.ultrasound, echocard.ASA 325mg daily for now. Thank you, Visit type - Emergency Visit Emergency Visit: Yes ED Registration Date: 01/05/19 Care time: The patient presented to the Emergency Department on the above date and was hospitalized for further evaluation of their emergent condition. - New Patient This patient is new to me today: No - Critical Care Critical Care patient: No - Discharge Referral Referred to [facility] No
[2019-01-06] MEDS ORDERED: PT OWN MED DRAWER 7, Y5N ONE (08:52)
[2019-01-06] MEDS: amLODIPine BESYLATE 10 MG TABLET (FP) PO SCH (09:00)
[2019-01-06] MEDS: DOXAZOSIN MESYLATE 4 MG TABLET PO SCH (09:00)
[2019-01-06] MEDS: VALSARTAN 160 MG TABLET (UD) PO SCH (09:00)
[2019-01-06] MEDS: HYDROCHLOROTHIAZIDE 25 MG TABLET (FP) PO SCH (09:00)
[2019-01-06] MEDS: ASPIRIN 325 MG ENTERIC COATED TABLET (FP) PO SCH (09:00)
[2019-01-06] MEDS: LABETALOL HCL 200 MG TABLET (FP) PO SCH ×2 (09:00→21:05)
--- NOTE | 2019-01-06 10:25 | CONSULT ---
Admitting History and Physical - Primary Care Physician PCP: Erick Ortega - Admission History of Present Illness: Per EMR; History of Present Illness: 68 Y F, with PMH of HTN, HLD, sinusitis, and osteoporosis, presents for possible TIA. Patients last known well was at 10:40 am (~1 hour ago). Patient notes she was in the car coming back from dropping her daughter at the train station, when she suddenly felt bad and as if she were losing her strength. Patient states she went to pickup driver a water bottle with her right hand, and was unable to secondary to increased weakness of the right upper extremity. Patient notes she was able to pickup driver the bottle with her left hand. She reports chest palpitations, feeling dizzy, had a knot in her throat, and had difficulty speaking. Patients notes he was unable to understand what she was saying. Selected Entries 01/05/19 01/05/19 01/05/19 11:10 11:45 15:55 Temperature 97 F L 98.1 F 98.3 F 01/05/19 01/05/19 01/06/19 18:49 20:26 06:00 Temperature 98.4 F 98.6 F 97.4 F L 01/06/19 08:00 Temperature 98.4 F Laboratory Tests 01/06/19 05:40 WBC 7.9 This is my first consult for this pt. History Source: Patient Limitations to Obtaining History: No Limitations - Past Medical History Cardiovascular: Yes: HTN, Hyperlipdemia Additional Past Medical History: Osteoperosis sinusitis - Smoking History Smoking history: Unknown if ever smoked Have you smoked in the past 12 months: No If you are a former smoker, when did you quit?: 20years - Alcohol/Substance Use Hx Alcohol Use: No History - Admission Reason For Visit: TRANSIENT ISCHEMIC ATTACK - Diagnostics X-ray: Report Reviewed CT Scan: Report Reviewed MRI: Pending - General Mental Status: Alert and Oriented, Awake and Alert, Able to Follow Commands Attention: Intact Ability to Follow Directions: Excellent Head/Neck Control: WFL - Hearing Hearing: Functional Speech Evaluation - Communication Primary Language: [place] Communication: Yes: Within Normal Limits Oral Expression Ability: Yes: No Impairment - Speech Production Able to Make Needs Known: Yes: WNL Intelligibility: Yes: WNL - Speech Characteristics Voice Loudness: Normal Voice Pitch: Yes: Normal Voice Phonatory-based Quality: Yes: Normal Speech Pattern: Normal Speech Clarity: < 100% Nasal Resonance: Normal Articulation: Yes: Precise Rate of Speech: Intact - Language/Auditory Comprehension Follows: Yes: 2 Stage Simple Commands Observation: Able to respond to yes/no queries: Yes, Yes/No Confusion: No, Comprehends Conversational Speech: Yes - Language/Verbal Expression Able to Respond to Simple Queries: Yes: WNL Able to Communicate Wants and Needs: Yes: WNL Functional Communication Status: Yes: WNL - Memory/Perception drama critic Memory: Yes: WNL Short Term Memory: Yes: WNL - Swallow Evaluation/Bedside Assessment Current Nutritional Intake: Regular, Thin Liquids Oral Secretions: Yes: WFL Dentition: Yes: Adequate Facial Symmetry at Rest: Symmetrical Facial Symmetry on Retraction: Symmetrical Facial Movement: Controlled Sensation: Normal Against Resistance Opening: Normal Against Resistance Closing: Normal Pucker Lips: Normal Smile: Normal Lingual Movement: Normal, Deviates Left Lingual Speed of Movement: Normal Lingual Movement Strgth Against Opposition: Normal Lingual Movement Characteristics: Normal Velopharyngeal Movement: Normal Laryngeal Elevation: WFL Laryngeal Movement: Able to Palpate Rate of Intake: WFL Bolus Size: WFL Labial Seal: WFL Chewing: WFL Oral Prep Time: WFL A-P Transit: WFL Pocketing: None Timing of Swallow: WFL Coughing/Throat Clear: No Change in Voice: No Recommendations - Speech Evaluation, Impression/Plan Impression: Speech production, cognition, language, swallowing intact. TONGUE DEVIATES TO LEFT UPON PROTRUSION. No h/o smoking. Reports effortful swallow at times, long standing. No signs of aspiration. No odynophagia. Voice euphonic. Denies GERD. Pending MRI. - Dysphagia Impressions/Plan Swallowing Skills: [facility] Dysphagia Impressions: Mild Impairment (per pt, not acute) *Silent aspiration: cannot be R/O at bedside - Recommendations Diet Consistency: Regular Medication Administration: Whole with water Liquids: Thin Liquids
--- NOTE | 2019-01-06 11:39 | ECHO ---
Name: MATTHEW LAMA Exam:Adult Echocardiogram Study Date: 01/06/2019 09:19 AM Age: 68 yrs Reason For Study: TIA/CVA? Height: 67 in Weight: 181 lb BSA: 1.9 m2 MMode/2D Measurements & Calculations IVSd: 1.2 cm Ao root diam: 2.6 cm LVIDd: 4.1 cm LA dimension: 3.1 cm LVIDs: 3.0 cm ACS: 1.9 cm LVPWd: 1.5 cm EDV(Teich): 76.1 ml LVOT diam: 2.0 cm ESV(Teich): 36.1 ml RV S Douglas: 14.8 cm/sec Doppler Measurements & Calculations MV E max douglas: 64.3 cm/sec MV A max douglas: 81.4 cm/sec MV dec slope: 293.3 cm/sec2 MV E/A: 0.79 Ao V2 max: 147.7 cm/sec LV V1 max P.9 mmHg Ao max P.7 mmHg LV V1 mean P.7 mmHg Ao V2 mean: 101.7 cm/sec LV V1 max: 140.8 cm/sec Ao mean P.8 mmHg LV V1 mean: 89.0 cm/sec Ao V2 VTI: 31.9 cm LV V1 VTI: 31.3 cm JAVIER(I,D): 3.1 cm2 JAVIER(V,D): 3.0 cm2 SV(LVOT): 98.9 ml Med Peak E' Douglas: 11.4 cm/sec Med E/e': 5.6 Lat Peak E' Douglas: 9.1 cm/sec Lat E/e': 7.0 Procedure A complete two-dimensional transthoracic echocardiogram was performed (2D, M-mode, Doppler and color flow Doppler). Left Ventricle The left ventricular size, thickness and function are normal. The left ventricular ejection fraction is normal. Ejection Fraction = 60-65%. The left ventricular wall motion is normal. Right Ventricle The right ventricle is normal in size and function. Atria Normal left and right atrial size and function. Mitral Valve There is no mitral regurgitation noted. Tricuspid Valve No tricuspid regurgitation. There was insufficient TR detected to calculate RV systolic pressure. Aortic Valve No hemodynamically significant valvular aortic stenosis. No aortic regurgitation is present. Pulmonic Valve Trace pulmonic valvular regurgitation. Great Vessels The aortic root is normal size. Pericardium/Pleura There is no pericardial effusion. Interpretation Summary The left ventricular size, thickness and function are normal The right ventricle is normal in size and function. Trace pulmonic valvular regurgitation. MD Maurice Vogel 01/06/2019 11:38 AM
[2019-01-06] MEDS ORDERED: ATORVASTATIN CA 10 MG TABLET (FP) PO SCH (22:00)
[2019-01-06] MEDS ORDERED: ATORVASTATIN CA 40 MG TABLET (FP) PO SCH (22:00)
[2019-01-07] MEDS ORDERED: ATORVASTATIN CA 40 MG TABLET (FP) PO SCH (08:09)
--- NOTE | 2019-01-07 08:14 | DS ---
Physical Exam: SUBJECTIVE: Patient seen and examined OBJECTIVE: Vital Signs Period Temp Pulse Resp BP Sys/Albright Pulse Ox Last 24 Hr 97.6 F-976 F 67-77 18-20 104-144/56-68 99-99 PHYSICAL EXAM Constitutional: Yes: Well Nourished, No Distress, Calm Eyes: Yes: WNL, Conjunctiva Clear, EOM Intact HENT: Yes: WNL, Atraumatic, Normocephalic Neck: Yes: WNL, Supple, Trachea Midline Cardiovascular: Yes: WNL, Regular Rate and Rhythm Respiratory: Yes: WNL, Regular, CTA Bilaterally Gastrointestinal: Yes: WNL, Normal Bowel Sounds, Soft ...Rectal Exam: Yes: Deferred Genitourinary: Yes: WNL Breast(s): Yes: WNL Musculoskeletal: Yes: WNL Extremities: Yes: WNL Edema: No Peripheral Pulses WNL: Yes Integumentary: Yes: WNL Neurological: Yes: WNL, Alert, Oriented, Cran Nerves II-XII Intact ...Motor Strength: WNL Psychiatric: Yes: WNL, Alert, Oriented Labs: HOSPITAL COURSE: Date of Admission:01/05/19 Date of Discharge: 01/07/19 Imaging: Carotid Dopplers:There is moderate intimal thickening in the right common carotid artery with a small to moderate size soft plaque with calcification at the bifurcation/bulb and without evidence of hemodynamically significant stenosis. There is also moderate intimal thickening in the left common carotid artery with suggestion of a small soft plaque at the bifurcation/bulb without evidence of hemodynamically significant stenosis. TTE: Ef 60-65%, trace pul valve regurg, RV fx nm MRI: small acute lacunar infarct at junction of right posterior limb of internal capsule. Problem List - Problems (1) Preventive measure Assessment/Plan: FEN low/fat cholesterol diet DVT c/w asa 325mg on discharge (2) TIA/CVA Assessment/Plan: slurring of speech resolved since initial presentation to ED HCT with no acute pathology MRI small acute lacunar infarct at junction of right posterior limb of internal capsule. TTE done and nml c/w asa on discarge Dr Mary helton in office in 2 weeks consultation by speech pathology no dysphagia, c/w thin liquids at home (3) Hypertension Assessment/Plan: continue norvasc, hctx, labetolol, doxazosin, diovan to mainatin BP <140/90 (4) Hyperlipidemia Assessment/Plan: Increased atrovastatin to 80 mg qd Minutes to complete discharge: 35 Discharge Summary Reason For Visit: TRANSIENT ISCHEMIC ATTACK Current Active Problems Hyperlipidemia (Acute) Preventive measure (Acute) TIA (transient ischemic attack) (Acute) Hospital Course: HOSPITAL COURSE: Date of Admission:01/05/19 Date of Discharge: 01/07/19 Imaging: Carotid Dopplers:There is moderate intimal thickening in the right common carotid artery with a small to moderate size soft plaque with calcification at the bifurcation/bulb and without evidence of hemodynamically significant stenosis. There is also moderate intimal thickening in the left common carotid artery with suggestion of a small soft plaque at the bifurcation/bulb without evidence of hemodynamically significant stenosis. TTE: Ef 60-65%, trace pul valve regurg, RV fx nm MRI: small acute lacunar infarct at junction of right posterior limb of internal capsule. Problem List - Problems (1) Preventive measure Assessment/Plan: FEN low/fat cholesterol diet DVT c/w asa 325mg on discharge (2) TIA/CVA Assessment/Plan: slurring of speech resolved since initial presentation to ED HCT with no acute pathology MRI small acute lacunar infarct at junction of right posterior limb of internal capsule. TTE done and nml c/w asa on discarge Dr Hernandez will se patinet in office in 2 weeks consultation by speech pathology no dysphagia, c/w thin liquids at home (3) Hypertension Assessment/Plan: continue norvasc, hctx, labetolol, doxazosin, diovan to mainatin BP <140/90 (4) Hyperlipidemia Assessment/Plan: Increased atrovastatin to 80 mg qd Patient stable to be discharge home with follow up in neurologist office in 2 weeks Condition: Improved - Instructions Diet, Activity, Other Instructions: You were admitted for slurred speech and weakness in your right side. You had a small stroke that was seen on MRI. Your cholesterol was also very high. Your dose of Lipitor was increased and you were started on an aspirin. Dr Hernandez the neurologist will see you in 2 weeks, his office will call to set up an appointment. Eat a diet that is low in fat and cholesterol. No fried heavy foods or a lot of shellfish. The manager cardiac cath will help you with what you should eat. If you have any returning weakness or difficulty speaking come to the ED. Referrals: Veronica Hernandez MD [Staff Physician] - 2 Weeks (office will call you) - Home Medications Comprehensive Discharge Medication List: Ambulatory Orders Amlodipine Besylate 10 mg PO DAILY 06/09/18 Doxazosin Mesylate 4 mg PO DAILY 06/09/18 Labetalol HCl [Normodyne -] 200 mg PO BID 06/09/18 Olmesartan/Hydrochlorothiazide [Olmesartan-Hctz 40-25 mg Tab] 1 each PO DAILY Simvastatin 20 mg PO DAILY 06/10/18 Atorvastatin Ca [Lipitor] 80 mg PO HS #30 tablet 01/07/19 Problem List - Problems (1) Preventive measure Code(s): Z29.9 - ENCOUNTER FOR PROPHYLACTIC MEASURES, UNSPECIFIED (2) Hypertension Code(s): I10 - ESSENTIAL (PRIMARY) HYPERTENSION Qualifiers: Hypertension type: unspecified Qualified Code(s): I10 - Essential (primary ) hypertension (3) Hyperlipidemia Code(s): E78.5 - HYPERLIPIDEMIA, UNSPECIFIED (4) Lacunar cerebrovascular accident (CVA) of subthalamic region Code(s): I63.81 - OTHER CEREB INFRC DUE TO OCCLS OR STENOSIS OF SMALL ARTERY This patient is new to me today: No Emergency Visit: Yes ED Registration Date: 01/05/19 Care time: The patient presented to the Emergency Department on the above date and was hospitalized for further evaluation of their emergent condition. Critical Care patient: No - Discharge Referral Referred to [facility] No
[2019-01-07] MEDS: VALSARTAN 160 MG TABLET (UD) PO SCH (09:09)
[2019-01-07] MEDS: ASPIRIN 325 MG ENTERIC COATED TABLET (FP) PO SCH (09:09)
[2019-01-07] MEDS: HYDROCHLOROTHIAZIDE 25 MG TABLET (FP) PO SCH (09:10)
[2019-01-07] MEDS: amLODIPine BESYLATE 10 MG TABLET (FP) PO SCH (09:10)
[2019-01-07] MEDS: DOXAZOSIN MESYLATE 4 MG TABLET PO SCH (09:10)
[2019-01-07] MEDS: LABETALOL HCL 200 MG TABLET (FP) PO SCH (09:10)
[2019-01-07 10:24] VITALS: BP 143/77; PULSE 72; TEMP 98.6
== END 2019-01-07 13:49 | disposition home or self-care (01) ==
LOC: JER 11:00 → SUPCPDRO 11:00 → INTOOBSV 13:30 → UNDOADMOB 13:30 → JERBED 13:30 → J4W 14:45 → JERBED 14:45 → J4W 17:02
PROVIDERS: ADMIT Internal Medicine; ATTEND Nurse Practitioner Acute Care
PROC: 3E0337Z Introduction of Electrolytic and Water Balance Substance into Peripheral Vein, Percutaneous Approach (ICD-10-PCS; principal; 2019-01-05)
DX: G45.9 Transient cerebral ischemic attack, unspecified (principal); I10 Essential (primary) hypertension; E78.5 Hyperlipidemia, unspecified; M81.0 Age-related osteoporosis without current pathological fracture
CPT/HCPCS: 36415; 70450-TC; 70551-TC; 71045-TC-FY; 80053; 82465; 82550; 82553; 83718; 83721; 83735; 84478; 84484; 85025; 85610; 86850; 86900; 86901; 93005; 93010; 93306-TC; 93880-TC; 97116-GP; 97161-GP; 99285-25; G0378; J7030

== ENCOUNTER 2019-01-18 23:46 | Emergency (ER) | payer MEDICARE, OTHER | END 2019-01-19 03:26 | disposition home or self-care (01) | LOC: JER 23:46 | DX: I10 Essential (primary) hypertension (principal); E78.5 Hyperlipidemia, unspecified; J34.89 Other specified disorders of nose and nasal sinuses ==

== ENCOUNTER 2024-10-23 09:10 | Emergency (ER) | payer MEDICARE, OTHER ==
[2024-10-23 09:20] VITALS: BMI 25.9
[2024-10-23 10:22] LABS: HEMATOCRIT 34.6 % (34.1-44.9); HEMOGLOBIN 11.3 g/dL (11.2-15.7); MCHC 32.7 g/dl (32.2-35.5); MEAN CELL VOLUME 92.3 fl (79.4-94.8); MEAN PLT VOLUME 10.3 fl (9.4-12.3); PLATELET COUNT 267 x10^3/uL (182-369); RDW 13.8 % (12.4-16.6)
[2024-10-23 10:34] LABS: INR 1.23 (0.83-1.09); PROTHROMBIN TIME (PATIENT) 13.5 SEC (9.7-13.0)
[2024-10-23 10:37] LABS: ACTIVATED PTT 38.6 SECONDS (25.2-36.5)
[2024-10-23 10:41] LABS: POTASSIUM 3.8 mmol/L (3.5-5.1)
[2024-10-23 10:43] LABS: CALCIUM 9.7 mg/dL (8.5-10.1)
[2024-10-23 10:44] LABS: BLOOD UREA NITROGEN 12.5 mg/dL (7-18); MAGNESIUM 2.3 mg/dL (1.8-2.4)
[2024-10-23 10:47] LABS: CREATININE 0.9 mg/dL (0.55-1.3)
[2024-10-23 10:48] LABS: BILIRUBIN,TOTAL 0.6 mg/dL (0.2-1); TOT PROT 7.9 g/dl (6.4-8.2)
[2024-10-23 11:50] LABS: EPI CELLS 4 /uL (0-25.1); HYALINE CASTS 0 /uL (0-3.1); PH,URINE 7.5 (5.0-8.0); URINE APPEARANCE CLEAR; URINE BACTERIA 29 /uL (0-1359); URINE BILIRUBIN NEGATIVE (NEGATIVE); URINE COLOR YELLOW; URINE GLUCOSE (UA) NEGATIVE (NEGATIVE); URINE KETONE NEGATIVE (NEGATIVE); URINE LEUK ESTERASE TRACE (NEGATIVE); URINE NITRITE NEGATIVE (NEGATIVE); URINE PROTEIN NEGATIVE (NEGATIVE); URINE RBC 7 /uL (0-23.9); URINE UROBILINOGEN 0.2 mg/dL (0.2-1.0); URINE WBC 6 /uL (0-25.8)
[2024-10-23] MEDS ORDERED: ACETAMINOPHEN INJECTION 100 ML ONE (12:24)
[2024-10-23] MEDS: ACETAMINOPHEN 1000 MG/100 ML BAG IVPB ONE (12:29)
[2024-10-23 13:44] LABS: HCV DIAGNOSTIC IN-HOUSE W/RFLX NON-REACTIVE (NONREACTIVE); HIV INTERPRETATION NEGATIVE (NEGATIVE)
[2024-10-23 14:02] VITALS: BP 153/60; PULSE 60; RESP 20; TEMP 98.3
== END 2024-10-23 14:38 | disposition home or self-care (01) ==
LOC: JER 09:10
PROC: 3E033NZ Introduction of Analgesics, Hypnotics, Sedatives into Peripheral Vein, Percutaneous Approach (ICD-10-PCS; principal; 2024-10-23)
DX: R51.9 Headache, unspecified (principal); R30.0 Dysuria; R05.9 Cough, unspecified; I10 Essential (primary) hypertension
CPT/HCPCS: 36415; 70450-TC; 71046-TC-FY; 80053; 80061; 81003; 83036; 83690; 83735; 84484; 85027; 85610; 85730; 86803; 87086; 87389; 93005; 93010; 96374; 99285-25